=== PATIENT | male | born 1950 | race Native Hawaiian/Other Pacific Islander ===

== ENCOUNTER 2017-06-08 12:32 | Inpatient (IN) | payer MEDICARE, OTHER ==
[2017-06-08] MEDS ORDERED: Sodium Chloride 0.9% 1,000 ML IV ONE (13:35)
--- NOTE | 2017-06-08 13:42 | C.PDOC ---
History Of Present Illness 66 year old male wit PMHx of HTN, HLD, DM presents to the ED c/o feeling confused, generalized weakness along with vomit and diarrhea. Patient is also c/ o urinary frequency associated with burning sensation and nocturia. Patient denies chills, nausea, abdominal pain, back pain. Time Seen by Provider: 06/08/17 13:09 Chief Complaint (Nursing): Cough, Cold, Congestion History Per: Patient History/Exam Limitations: no limitations Onset/Duration Of Symptoms: Days Current Symptoms Are (Timing): Still Present Recent travel outside of the [place]: No Additional History Per: Patient Past Medical History Reviewed: Historical Data, Nursing Documentation, Vital Signs Vital Signs: Last Vital Signs Temp 97.8 F 06/08/17 12:40 Pulse 78 06/08/17 12:40 Resp 16 06/08/17 12:40 BP 116/64 06/08/17 12:40 Pulse Ox 95 06/08/17 14:33 - Medical History PMH: Diabetes, HTN, Hypercholesterolemia Surgical History: No Surg Hx Family History: States: Unknown Family Hx - Social History Hx Alcohol Use: No Hx Substance Use: No - Immunization History Hx Tetanus Toxoid Vaccination: No Hx Influenza Vaccination: Yes Hx Pneumococcal Vaccination: No Review Of Systems Constitutional: Positive for: Weakness. Negative for: Fever, Chills Cardiovascular: Negative for: Chest Pain, Palpitations Respiratory: Negative for: Cough, Shortness of Breath Gastrointestinal: Negative for: Nausea, Vomiting, Abdominal Pain Genitourinary: Positive for: Dysuria, Frequency. Negative for: Hematuria Skin: Negative for: Rash Neurological: Negative for: Weakness, Numbness, Headache, Dizziness Physical Exam - Physical Exam Appears: Non-toxic, No Acute Distress Skin: Normal Color, Warm, Dry Head: Atraumatic, Normacephalic Eye(s): bilateral: Normal Inspection Nose: No Discharge, No Deformity Oral Mucosa: Moist Neck: Normal ROM, Supple Chest: Symmetrical Cardiovascular: Rhythm Regular, No Murmur Respiratory: Normal Breath Sounds, No Rales, No Rhonchi, No Wheezing Gastrointestinal/Abdominal: Soft, No Tenderness, No Guarding, No Rebound Back: No CVA Tenderness Extremity: Normal ROM, No Pedal Edema, No Calf Tenderness, No Deformity, No Swelling Neurological/Psych: Oriented x3, Normal Speech, Normal Cognition Gait: Steady ED Course And Treatment - Laboratory Results Result Diagrams: 06/08/17 13:52 06/08/17 13:52 ECG: Interpreted By Me, Viewed By Me ECG Rhythm: Sinus Rhythm, Nonspecific Changes (T wave changes) Interpretation Of ECG: Sinus rhythm at 75 BPM with normal interval intervals, axis, no specific T wave changes. Rate From EC O2 Sat by Pulse Oximetry: 95 (On RA) Pulse Ox Interpretation: Normal - Radiology CXR: Viewed By Me, Read By Radiologist CXR Interpretation: Yes: Other (5 mm right lower lobe nodular density. Outpatient CT of the chest may be considered for further evaluation if indicated.). No: No Acute Disease, Infiltrates Medical Decision Making Medical Decision Making: Impression : generalized weakness Plan: * EKG * Labs * CXR * IV fluids * UA Patient will be admitted to medical surgical floor, patient will go to Dr. Dewayne Nguyen's service for renal failure. Disposition Discussed With : Zay Nguyen Doctor Will See Patient In The: Hospital Counseled Patient/Family Regarding: Studies Performed, Diagnosis - Disposition Disposition: HOSPITALIZED Disposition Time: 14:33 Condition: FAIR Forms: [employer] [facility] [employer] (Kyrgyz) - Clinical Impression Clinical Impression: Renal failure, acute - Scribe Statement The provider has reviewed the documentation as recorded by the Scribe Abram Multani All medical record entries made by the Scribe were at my direction and personally dictated by me. I have reviewed the chart and agree that the record accurately reflects my personal performance of the history, physical exam, medical decision making, and the department course for this patient. I have also personally directed, reviewed, and agree with the discharge instructions and disposition.
[2017-06-08] MEDS ORDERED: Sodium Chloride 0.9% 1,000 ML ONE (13:44)
[2017-06-08 13:56] LABS: BASO % 0.5 % (0.0-2.0); HEMOGLOBIN 19.1 g/dL (12.0-18.0); LYMPH # 0.8 K/uL (1.0-4.3); LYMPH % 8.3 % (20.0-40.0); MEAN CELL VOLUME 89.3 fL (80.0-94.0); MEAN CORPUSCULAR HEMOGLOBIN 30.4 pg (27.0-31.0); MEAN CORPUSCULAR HGB CONC 34.1 g/dL (33.0-37.0); MEAN PLATELET VOLUME 8.4 fL (7.2-11.7); MONO # 1.7 K/uL (0.0-0.8); MONO % 18.4 % (0.0-10.0); NEUT # 6.8 K/uL (1.8-7.0); NEUT % 72.8 % (50.0-75.0); NRBC % 0.3 % (0.0-2.0); PLATELET COUNT 344 K/uL (130-400); RBC 6.26 Mil/uL (4.40-5.90); RED CELL DISTRIBUTION WIDTH 13.1 % (11.5-14.5); WHITE BLOOD COUNT 9.3 K/uL (4.8-10.8)
--- NOTE | 2017-06-08 14:02 | RAD ---
HISTORY: SOB COMPARISON: None available. TECHNIQUE: Chest PA and lateral FINDINGS: LUNGS: No focal consolidation. 5 mm nodular density, right lung base. Please note that chest x-ray has limited sensitivity for the detection of pulmonary masses. PLEURA: No significant pleural effusion identified. No definite pneumothorax . CARDIOVASCULAR: The cardiomediastinal silhouette appears within normal limits of size. Faint atherosclerotic calcification OSSEOUS STRUCTURES: Degenerative changes. VISUALIZED UPPER ABDOMEN: Unremarkable. OTHER FINDINGS: None. IMPRESSION: No acute findings identified. 5 mm right lower lobe nodular density. Outpatient CT of the chest may be considered for further evaluation if indicated.
[2017-06-08 14:10] LABS: ALB/GLOB RATIO 1.2 (1.0-2.1); ALBUMIN 4.6 g/dL (3.5-5.0); CALCIUM 8.4 mg/dl (8.6-10.4)
[2017-06-08 14:19] LABS: TROPONIN I 0.077 ng/mL (0.00-0.120)
[2017-06-08 14:25] LABS: BANDS 2 % (0-2); LYMPHOCYTE 8 % (20-40); MONOCYTE 19 % (0-10); NEUTROPHIL 70 % (50-75); PLATELET ESTIMATE NORMAL (NORMAL); REACTIVE LYMPHOCYTES 1 % (0-0); TOTAL CELLS COUNTED 100
[2017-06-08 14:26] LABS: ANISOCYTOSIS SLIGHT; LARGE PLATELETS PRESENT
--- NOTE | 2017-06-08 16:42 | CP.PCM.HP ---
Past Patient History - Past Social History Smoking Status: Light Smoker < 10 Cigarettes Daily - CARDIAC Hx Hypercholesterolemia: Yes Hx Hypertension: Yes - ENDOCRINE/METABOLIC Hx Diabetes Mellitus Type 2: Yes - PSYCHIATRIC Hx Substance Use: No Meds Allergies/Adverse Reactions: Allergies Allergy/AdvReac Type Severity Reaction Status Date / Time No Known Allergies Allergy Verified 06/08/17 12:49 Physical Exam - Constitutional Appears: Well - Head Exam Head Exam: ATRAUMATIC, NORMAL INSPECTION, NORMOCEPHALIC - Eye Exam Eye Exam: EOMI, Normal appearance, PERRL Pupil Exam: NORMAL ACCOMODATION, PERRL - ENT Exam ENT Exam: Mucous Membranes Moist, Normal Exam - Neck Exam Neck exam: Positive for: Normal Inspection - Respiratory Exam Respiratory Exam: Decreased Breath Sounds - Cardiovascular Exam Cardiovascular Exam: REGULAR RHYTHM, +S1, +S2 - GI/Abdominal Exam GI & Abdominal Exam: Diminished Bowel Sounds, Soft - Rectal Exam Rectal Exam: Deferred Results - Vital Signs Recent Vital Signs: Last Vital Signs Temp 97.4 F L 06/08/17 16:27 Pulse 70 06/08/17 16:27 Resp 20 06/08/17 16:27 BP 125/71 06/08/17 16:27 Pulse Ox 97 06/08/17 16:27 - Labs Result Diagrams: 06/08/17 13:52 06/08/17 13:52 Labs: Laboratory Results - last 24 hr 06/08/17 06/08/17 13:52 13:52 WBC 9.3 RBC 6.26 H Hgb 19.1 H Hct 55.9 H MCV 89.3 MCH 30.4 MCHC 34.1 RDW 13.1 Plt Count 344 MPV 8.4 Neut % (Auto) 72.8 Lymph % (Auto) 8.3 L Beaver % (Auto) 18.4 H Eos % (Auto) 0.0 Baso % (Auto) 0.5 Neut # 6.8 Lymph # 0.8 L Beaver # 1.7 H Eos # 0.0 Baso # 0.0 Neutrophils % (Manual) 70 Band Neutrophils % 2 Lymphocytes % (Manual) 8 L Reactive Lymphs % 1 H Monocytes % (Manual) 19 H Platelet Estimate Normal Large Platelets Present Anisocytosis (manual) Slight Sodium 127 L Potassium 4.4 Chloride 87 L Carbon Dioxide 18 L Anion Gap 27 H BUN 69 H Creatinine 6.6 H Est GFR ( Amer) 10 Est GFR (Non-Af Amer) 8 Random Glucose 332 H Calcium 8.4 L Total Bilirubin 0.7 AST 26 ALT 37 Alkaline Phosphatase 74 Troponin I 0.0770 NT-Pro-B Natriuret Pep 889 Total Protein 8.3 Albumin 4.6 Globulin 3.7 Albumin/Globulin Ratio 1.2 Lipase 60
--- NOTE | 2017-06-08 22:28 | US ---
EXAM: US Retroperitoneal Limited, Renal EXAM DATE/TIME: 06/08/2017 7:08 PM CLINICAL HISTORY: 66 years old, male; Signs and symptoms; Other: Marko TECHNIQUE: Real-time ultrasound of the retroperitoneum (limited) with image documentation. COMPARISON: There are no prior studies for comparison. FINDINGS: Right kidney: Right kidney measures approximately 10.5 x 4.6 x 5.5 cm. There is increased cortical echogenicity. Corticomedullary differentiation is visualized. There is pelvic lipomatosis. There is a 1.6 x 1.5 x 1.3 cm right upper pole cyst. There is no pelvocaliectasis. Left kidney: Left kidney measures approximately 10.9 x 5.4 x 5 cm. There is increased cortical echogenicity. Corticomedullary differentiation is visualized. There is a 1 x 0.8 x 1.2 cm left upper pole cyst. There is a 5 x 7 x 6 mm mid pole cyst. There is a 6 x 6 x 6 mm lower pole cyst. There is no pelvocaliectasis. Aorta: There are atherosclerotic calcifications in the distal aorta. Bladder: Bladder is partially distended. IMPRESSION: Normal size kidneys, no hydronephrosis; medical renal disease
[2017-06-09 00:29] VITALS: RESP 20
[2017-06-09 07:27] LABS: HEMOGLOBIN 18.7 g/dL (12.0-18.0); MEAN CELL VOLUME 88.6 fL (80.0-94.0); MEAN CORPUSCULAR HEMOGLOBIN 31.4 pg (27.0-31.0); MEAN CORPUSCULAR HGB CONC 35.4 g/dL (33.0-37.0); MEAN PLATELET VOLUME 8.8 fL (7.2-11.7); RBC 5.97 Mil/uL (4.40-5.90); RED CELL DISTRIBUTION WIDTH 13.2 % (11.5-14.5); WHITE BLOOD COUNT 7.4 K/uL (4.8-10.8)
[2017-06-09 07:41] LABS: ALB/GLOB RATIO 1.4 (1.0-2.1); ALT/SGPT 38 U/L (21-72); AST/SGOT 27 U/L (17-59); BLOOD UREA NITROGEN 74 mg/dL (9-20); CALCIUM 8.6 mg/dl (8.6-10.4); GFR AFRICAN-AMERICAN 21; GFR NON-AFRICAN AMERICAN 18
[2017-06-09 08:01] LABS: COMPLEMENT C4 35.4 mg/dL (14.0-44.0)
[2017-06-09 08:28] LABS: HEPATITIS B SURFACE AG Negative (NEGATIVE)
[2017-06-09 08:44] LABS: HEPATITIS C ANTIBODY NEGATIVE (NEGATIVE)
[2017-06-09 09:41] LABS: SQUAMOUS EPITHIAL 1 /hpf (0-5); URINE BACTERIA RARE (<OCC); URINE BILIRUBIN NEGATIVE (NEGATIVE); URINE BLOOD 1+ (NEGATIVE); URINE CLARITY Hazy (Clear); URINE COLOR Yellow (YELLOW); URINE GLUCOSE (UA) 2+ mg/dL (Normal); URINE LEUKOCYTE ESTERASE NEG Leu/uL (Negative); URINE NITRATE NEGATIVE (NEGATIVE); URINE PROTEIN 2+ mg/dL (NEGATIVE); URINE UROBILINOGEN NORMAL mg/dL (0.2-1.0)
[2017-06-09] MEDS ORDERED: cefTRIAXone IV 1 gm in Dextros 1 GM in Dextrose 5% In Water 50 ML IVPB SCH (10:00)
[2017-06-09] MEDS: Pantoprazole 40 mg EC Tab PO SCH (10:34)
[2017-06-09] MEDS ORDERED: Potassium Chloride 20 mEq ER Tab PO ONE (11:00)
[2017-06-09] MEDS ORDERED: DiphenhydrAMINE 50 mg/ml Inj IM STA (11:32)
--- NOTE | 2017-06-09 16:21 | CARD ---
APPROVED REPORT EKG Measurement Heart [id number] <Conclusion> Normal sinus rhythm Nonspecific T wave abnormality Abnormal ECG
--- NOTE | 2017-06-09 19:21 | CP.PCM.PN ---
Subjective - Date & Time of Evaluation Date of Evaluation: 06/09/17 Time of Evaluation: 10:20 - Subjective Subjective: clinically same Objective - Vital Signs/Intake and Output Vital Signs (last 24 hours): Temp Pulse Resp BP Pulse Ox 98.4 F 82 20 120/76 96 06/09/17 16:24 06/09/17 16:24 06/09/17 16:24 06/09/17 16:24 06/09/17 16:24 - Medications Medications: Current Medications Amlodipine Besylate (Norvasc) 5 mg PO DAILY [facility] Last Admin: 06/09/17 10:34 Dose: 5 mg Gemfibrozil (Lopid) 600 mg PO BID [facility] Last Admin: 06/09/17 18:05 Dose: 600 mg Glimepiride (Amaryl) 1 mg PO ACB [facility] Last Admin: 06/09/17 06:47 Dose: 1 mg Heparin Sodium (Porcine) (Heparin) 5,000 units SC Q8 [facility] Last Admin: 06/09/17 14:10 Dose: Not Given Ceftriaxone Sodium 1 gm/ (Sodium Chloride) 100 mls @ 200 mls/hr IVPB Q24H [facility] Last Admin: 06/09/17 10:36 Dose: 200 mls/hr Losartan Potassium (Cozaar) 25 mg PO DAILY [facility] Last Admin: 06/09/17 10:34 Dose: 25 mg Pantoprazole Sodium (Protonix Ec Tab) 40 mg PO DAILY [facility] Last Admin: 06/09/17 10:34 Dose: 40 mg Pneumococcal Polyvalent Vaccine (Pneumovax 23 Vaccine) 0.5 ml IM .ONCE ONE Stop: 06/11/17 10:01 Tamsulosin HCl (Flomax) 0.4 mg PO DAILY [facility] Last Admin: 06/09/17 10:34 Dose: 0.4 mg - Labs Labs: 06/09/17 06:58 06/09/17 06:58
[2017-06-10] MEDS: Pantoprazole 40 mg EC Tab PO SCH (09:04)
[2017-06-10 11:33] LABS: HEMOGLOBIN 18.9 g/dL (12.0-18.0); MEAN CELL VOLUME 86.8 fL (80.0-94.0); MEAN CORPUSCULAR HGB CONC 35.7 g/dL (33.0-37.0); MEAN PLATELET VOLUME 8.4 fL (7.2-11.7); RBC 6.11 Mil/uL (4.40-5.90); RED CELL DISTRIBUTION WIDTH 12.6 % (11.5-14.5); WHITE BLOOD COUNT 5.4 K/uL (4.8-10.8)
--- NOTE | 2017-06-10 12:04 | CP.PCM.PN ---
Subjective - Date & Time of Evaluation Date of Evaluation: 06/10/17 Time of Evaluation: 11:00 - Subjective Subjective: clinically same Objective - Vital Signs/Intake and Output Vital Signs (last 24 hours): Temp Pulse Resp BP Pulse Ox 97.4 F L 71 20 128/82 97 06/10/17 07:15 06/10/17 07:15 06/10/17 07:15 06/10/17 07:15 06/10/17 07:15 Intake and Output: 06/10/17 06/10/17 06:59 18:59 Intake Total 500 Output Total 300 Balance 200 - Medications Medications: Current Medications Amlodipine Besylate (Norvasc) 5 mg PO DAILY [facility] Last Admin: 06/10/17 09:04 Dose: 5 mg Gemfibrozil (Lopid) 600 mg PO BID [facility] Last Admin: 06/10/17 09:05 Dose: 600 mg Glimepiride (Amaryl) 1 mg PO ACB [facility] Last Admin: 06/10/17 08:29 Dose: 1 mg Heparin Sodium (Porcine) (Heparin) 5,000 units SC Q8 [facility] Last Admin: 06/10/17 06:03 Dose: 5,000 units Ceftriaxone Sodium 1 gm/ (Sodium Chloride) 100 mls @ 200 mls/hr IVPB Q24H [facility] Last Admin: 06/10/17 10:43 Dose: 200 mls/hr Losartan Potassium (Cozaar) 25 mg PO DAILY [facility] Last Admin: 06/10/17 09:05 Dose: 25 mg Pantoprazole Sodium (Protonix Ec Tab) 40 mg PO DAILY [facility] Last Admin: 06/10/17 09:04 Dose: 40 mg Pneumococcal Polyvalent Vaccine (Pneumovax 23 Vaccine) 0.5 ml IM .ONCE ONE Stop: 06/11/17 10:01 Tamsulosin HCl (Flomax) 0.4 mg PO DAILY [facility] Last Admin: 06/10/17 09:04 Dose: 0.4 mg - Labs Labs: 06/10/17 11:19 06/09/17 06:58 - Constitutional Appears: Well - Head Exam Head Exam: ATRAUMATIC, NORMAL INSPECTION, NORMOCEPHALIC - Eye Exam Eye Exam: EOMI, Normal appearance, PERRL Pupil Exam: NORMAL ACCOMODATION, PERRL - ENT Exam ENT Exam: Mucous Membranes Moist, Normal Exam - Neck Exam Neck Exam: Full ROM, Normal Inspection. absent: Lymphadenopathy - Respiratory Exam Respiratory Exam: Decreased Breath Sounds - Cardiovascular Exam Cardiovascular Exam: REGULAR RHYTHM, +S1, +S2 - GI/Abdominal Exam GI & Abdominal Exam: Soft, Diminished Bowel Sounds - Rectal Exam Rectal Exam: Deferred
[2017-06-10 12:05] LABS: CALCIUM 8.4 mg/dl (8.6-10.4)
[2017-06-10] MEDS ORDERED: Potassium Chloride 20 mEq ER Tab PO ONE (15:21)
[2017-06-10] MEDS: (Novolog) Insulin Aspart, Recombinant 100 u/ml 10 ml vial SC SCH ×2 (18:34→21:20)
--- NOTE | 2017-06-10 19:26 | CP.PCM.CON ---
History of Present Illness - History of Present Illness History of Present Illness: Asked by Dr. Nguyen for a GI consultation on this patient. 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 Prior to this he was in usual state of health. He describes having progressively worse loose watery diarrhea (up to 4 times daily) without presence of blood, found to be in acute renal failure. He also endorses two episodes of non-bloody emesis prior to arrival to hospital. He denies abdominal pain, fever/chills, weight loss, rectal bleeding, recent travel , sick contacts, or antibiotic use. No further vomiting while in hospital, but his diarrhea continues, he had 3 episodes today. He is tolerating PO diet without difficulty, no prior endoscopic evaluation. Social history: smokes 3 cigarettes day, no ETOH use Family history: reviewed, patient denies history of GI malignancy Review of Systems - Review of Systems Review of Systems: - All other comprehensive 12 point review of systems performed, negative - Constitutional Constitutional: Fatigue, Lethargy - Cardiovascular Cardiovascular: absent: Acrocyanosis, Chest Pain, Chest Pain at Rest, Chest Pain with Activity, Claudication, Diaphoresis, Dyspnea, Dyspnea on Exertion, Edema, Irregular Heart Rhythm, Pain Radiating to Arm/Neck/Jaw, Leg Edema, Leg Ulcers, Lightheadedness, Orthopnea, Palpitations, Paroxysmal Nocturnal Dyspnea, Pedal Edema, Radiating Pain, Rapid Heart Rate, Slow Heart Rate, Syncope, Other - Respiratory Respiratory: absent: Cough, Dyspnea, Hemoptysis, Dyspnea on Exertion, Wheezing, Snoring, Stridor, Pain on Inspiration, Chest Congestion, Excessive Mucous Production, Change in Mucous Color, Pain with Coughing, Other - Gastrointestinal Gastrointestinal: Loose Stools - Musculoskeletal Musculoskeletal: absent: Abnormal Gait, Arthralgias, Atrophy, Back Pain, Deformity, Joint Swelling, Limited Range of Motion, Loss of Height, Muscle Cramps, Muscle Weakness, Myalgias, Neck Pain, Numbness, Radiating Pain into Limb , Stiffness, Tingling, Other - Neurological Neurological: absent: Abnormal Gait, Abnormal Hearing, Abnormal Movements, Abnormal Speech, Behavioral Changes, Burning Sensations, Confusion, Convulsions , Disequilibrium, Dizziness, Numbness, Focal Weakness, Frequent Falls, Headaches , Lack of Coordination, Loss of Vision, Memory Loss, Paresthesias, Radicular Pain, Restless Legs, Sensory Deficit, Syncope, Tingling, Tremor, Vertigo, Weakness, Other Visual Disturbances, Other Past Patient History - Past Medical History & Family History Past Medical History?: Yes - Past Social History Smoking Status: Current Some Days Smoker - CARDIAC Hx Cardiac Disorders: Yes Hx Hypercholesterolemia: Yes Hx Hypertension: Yes - PULMONARY Hx Respiratory Disorders: No - NEUROLOGICAL Hx Neurological Disorder: No - HEENT Hx HEENT Problems: No - RENAL Hx Chronic Kidney Disease: No - ENDOCRINE/METABOLIC Hx Endocrine Disorders: Yes Hx Diabetes Mellitus Type 2: Yes - HEMATOLOGICAL/ONCOLOGICAL Hx Blood Disorders: No - INTEGUMENTARY Hx Dermatological Problems: No - MUSCULOSKELETAL/RHEUMATOLOGICAL Hx Musculoskeletal Disorders: No Hx Falls: No - GASTROINTESTINAL Hx Gastrointestinal Disorders: No - GENITOURINARY/GYNECOLOGICAL Hx Genitourinary Disorders: No - PSYCHIATRIC Hx Psychophysiologic Disorder: No Hx Substance Use: No - SURGICAL HISTORY Hx Surgeries: Yes Other/Comment: polyps removal - ANESTHESIA Hx Anesthesia: Yes Hx Anesthesia Reactions: No Hx Malignant Hyperthermia: No Has any member of the family had a problem w/ anesthesia?: No Meds Allergies/Adverse Reactions: Allergies Allergy/AdvReac Type Severity Reaction Status Date / Time No Known Allergies Allergy Verified 06/08/17 12:49 - Medications Medications: Current Medications Amlodipine Besylate (Norvasc) 5 mg PO DAILY [facility] Last Admin: 06/10/17 09:04 Dose: 5 mg Gemfibrozil (Lopid) 600 mg PO BID [facility] Last Admin: 06/10/17 18:19 Dose: 600 mg Glimepiride (Amaryl) 1 mg PO ACB [facility] Last Admin: 06/10/17 08:29 Dose: 1 mg Heparin Sodium (Porcine) (Heparin) 5,000 units SC Q8 [facility] Last Admin: 06/10/17 13:43 Dose: 5,000 units Ceftriaxone Sodium 1 gm/ (Sodium Chloride) 100 mls @ 200 mls/hr IVPB Q24H [facility] Last Admin: 06/10/17 10:43 Dose: 200 mls/hr Insulin Aspart (Novolog) 0 unit SC ACHS [facility] PRN Reason: Protocol Last Admin: 06/10/17 18:34 Dose: Not Given Losartan Potassium (Cozaar) 25 mg PO DAILY [facility] Last Admin: 06/10/17 09:05 Dose: 25 mg Pantoprazole Sodium (Protonix Ec Tab) 40 mg PO DAILY [facility] Last Admin: 06/10/17 09:04 Dose: 40 mg Pneumococcal Polyvalent Vaccine (Pneumovax 23 Vaccine) 0.5 ml IM .ONCE ONE Stop: 06/11/17 10:01 Tamsulosin HCl (Flomax) 0.4 mg PO DAILY [facility] Last Admin: 06/10/17 09:04 Dose: 0.4 mg Physical Exam - Constitutional Appears: Non-toxic, No Acute Distress - Head Exam Head Exam: NORMAL INSPECTION - Eye Exam Eye Exam: EOMI, Normal appearance - ENT Exam ENT Exam: Mucous Membranes Moist - Respiratory Exam Respiratory Exam: Clear to Auscultation Bilateral - Cardiovascular Exam Cardiovascular Exam: REGULAR RHYTHM, +S1, +S2 - GI/Abdominal Exam GI & Abdominal Exam: Normal Bowel Sounds, Soft Additional comments: non tender to palpation in four quadrants no palpable hepato/splenomegaly - Extremities Exam Extremities exam: Positive for: normal inspection - Neurological Exam Neurological exam: Alert, CN II-XII Intact, Oriented x3, Reflexes Normal - Psychiatric Exam Psychiatric exam: Normal Affect, Normal Mood - Skin Skin Exam: Dry, Intact, Normal Color, Warm Results - Vital Signs Recent Vital Signs: Last Vital Signs Temp 98.5 F 06/10/17 16:44 Pulse 85 06/10/17 16:44 Resp 20 06/10/17 16:44 BP 116/80 06/10/17 16:44 Pulse Ox 95 06/10/17 16:44 - Labs Result Diagrams: 06/10/17 11:19 06/10/17 11:19 Labs: Laboratory Results - last 24 hr 06/09/17 06/09/17 06/09/17 06:58 06:58 16:52 WBC RBC Hgb Hct MCV MCH MCHC RDW Plt Count MPV Sodium Potassium Chloride Carbon Dioxide Anion Gap BUN Creatinine Est GFR ( Amer) Est GFR (Non-Af Amer) POC Glucose (mg/dL) Random Glucose Calcium Stool Leukocytes, Qual Serum Immunofixation Not detected RPR Nonreactive C. difficile Ag & Toxin Negative 06/09/17 06/10/17 06/10/17 21:05 06:22 11:19 WBC 5.4 RBC 6.11 H Hgb 18.9 H Hct 53.0 H MCV 86.8 MCH 31.0 MCHC 35.7 RDW 12.6 Plt Count 283 MPV 8.4 Sodium Potassium Chloride Carbon Dioxide Anion Gap BUN Creatinine Est GFR ( Amer) Est GFR (Non-Af Amer) POC Glucose (mg/dL) 163 H 102 Random Glucose Calcium Stool Leukocytes, Qual Serum Immunofixation RPR C. difficile Ag & Toxin 06/10/17 06/10/17 06/10/17 11:19 11:43 16:31 WBC RBC Hgb Hct MCV MCH MCHC RDW Plt Count MPV Sodium 127 L Potassium 3.4 L Chloride 99 Carbon Dioxide 15 L Anion Gap 16 BUN 60 H Creatinine 1.8 H Est GFR ( Amer) 46 Est GFR (Non-Af Amer) 38 POC Glucose (mg/dL) 143 H 238 H Random Glucose 165 H Calcium 8.4 L Stool Leukocytes, Qual Serum Immunofixation RPR C. difficile Ag & Toxin 06/10/17 16:52 WBC RBC Hgb Hct MCV MCH MCHC RDW Plt Count MPV Sodium Potassium Chloride Carbon Dioxide Anion Gap BUN Creatinine Est GFR ( Amer) Est GFR (Non-Af Amer) POC Glucose (mg/dL) Random Glucose Calcium Stool Leukocytes, Qual Negative Serum Immunofixation RPR C. difficile Ag & Toxin Assessment & Plan - Assessment and Plan (Free Text) Assessment: DM HTN Weakness, acute renal insufficiency Diarrhea Plan: - Low residue, lactose free diet as tolerated - Creatinine improving, continue to monitor and follow up renal recommendations - Await results of stool studies (culture, O/P) - Continue with antibiotic therapy as per medical team - Would discontinue use of PPI therapy and may use immodium PRN for symptomatic relief - If symptoms persist despite conservative medical therapy, suggest CT imaging for further evaluation - Patient would benefit from elective outpatient colonoscopy following resolution of acute medical condition
[2017-06-11 00:24] VITALS: TEMP 97.4
[2017-06-11] MEDS: (Novolog) Insulin Aspart, Recombinant 100 u/ml 10 ml vial SC SCH ×2 (07:09→12:00)
[2017-06-11] MEDS ORDERED: Sodium Chloride 0.9% 500 ML IV ONE ×2 (07:43→10:55)
--- NOTE | 2017-06-11 07:49 | CP.PCM.PN ---
<Jennifer Enamorado - Last Filed: 06/11/17 10:57> Subjective - Date & Time of Evaluation Date of Evaluation: 06/11/17 Time of Evaluation: 06:40 - Subjective Subjective: GI progress note for Dr Cash' s service Patient in no acute distress. States the nausea, and vomiting has resolved. Patient states he had 1 episode of loose bowel movement this morning. No fever or chills. Patient ate breakfast and was able to tolerate the diet. Objective - Vital Signs/Intake and Output Vital Signs (last 24 hours): Temp Pulse Resp BP Pulse Ox 97.4 F L 67 20 117/74 95 06/10/17 23:17 06/10/17 23:17 06/10/17 23:17 06/10/17 23:17 06/10/17 23:17 - Medications Medications: Current Medications Amlodipine Besylate (Norvasc) 5 mg PO DAILY [facility] Last Admin: 06/10/17 09:04 Dose: 5 mg Gemfibrozil (Lopid) 600 mg PO BID [facility] Last Admin: 06/10/17 18:19 Dose: 600 mg Glimepiride (Amaryl) 1 mg PO ACB [facility] Last Admin: 06/10/17 08:29 Dose: 1 mg Heparin Sodium (Porcine) (Heparin) 5,000 units SC Q8 [facility] Last Admin: 06/11/17 05:31 Dose: 5,000 units Ceftriaxone Sodium 1 gm/ (Sodium Chloride) 100 mls @ 200 mls/hr IVPB Q24H [facility] Last Admin: 06/10/17 10:43 Dose: 200 mls/hr Sodium Chloride (Sodium Chloride 0.9%) 500 mls @ 1,000 mls/hr IV .Q30M ONE Stop: 06/11/17 08:12 Insulin Aspart (Novolog) 0 unit SC ACHS [facility] PRN Reason: Protocol Last Admin: 06/11/17 07:09 Dose: Not Given Loperamide HCl (Imodium) 2 mg PO Q6H PRN PRN Reason: Diarrhea Losartan Potassium (Cozaar) 25 mg PO DAILY [facility] Last Admin: 06/10/17 09:05 Dose: 25 mg Pneumococcal Polyvalent Vaccine (Pneumovax 23 Vaccine) 0.5 ml IM .ONCE ONE Stop: 06/11/17 10:01 Tamsulosin HCl (Flomax) 0.4 mg PO DAILY [facility] Last Admin: 06/10/17 09:04 Dose: 0.4 mg - Labs Labs: 06/10/17 11:19 06/10/17 11:19 - Constitutional Appears: No Acute Distress - Head Exam Head Exam: ATRAUMATIC, NORMAL INSPECTION, NORMOCEPHALIC - Eye Exam Eye Exam: Normal appearance - ENT Exam ENT Exam: Mucous Membranes Moist - Neck Exam Neck Exam: Normal Inspection - Respiratory Exam Respiratory Exam: Clear to Ausculation Bilateral, NORMAL BREATHING PATTERN. absent: Rales, Rhonchi, Wheezes, Respiratory Distress, Stridor - Cardiovascular Exam Cardiovascular Exam: REGULAR RHYTHM, +S1, +S2 - GI/Abdominal Exam GI & Abdominal Exam: Soft, Normal Bowel Sounds. absent: Distended, Firm, Guarding, Rigid, Tenderness - Extremities Exam Extremities Exam: Normal Inspection. absent: Pedal Edema - Back Exam Back Exam: NORMAL INSPECTION - Neurological Exam Neurological Exam: Alert, Awake, Oriented x3 - Psychiatric Exam Psychiatric exam: Normal Affect, Normal Mood - Skin Skin Exam: Dry, Intact, Warm Assessment and Plan - Assessment and Plan (Free Text) Assessment: 66 y/o with pmh of htn, DM presenting with generalized weakness, nausea, and diarrhea found to have acute renal failure. Gi is consulted for diarrhea. Stool c diff negative. 1- Diarrhea : likely gastroenteritis due to lopid side effect versus viral versus hyperuremia 2- ERASMO likely pre-renal from dehydration versus, creat improved 3- DM 4- HTN Plan: - Stool c diff negative - Continue low residue diet as tolerated - Imdodium prn - Medical management as per primary - Please follow up as outpatient for colonoscopy once diarrhea resolves. - Gi signing off of patient. Patient seen, examined and case discussed with GI fellow and Dr Josue. <Ayush Cash MD - Last Filed: 06/12/17 08:17> Objective - Vital Signs/Intake and Output Vital Signs (last 24 hours): Temp Pulse Resp BP Pulse Ox 97.4 F L 65 20 114/69 97 06/11/17 08:14 06/11/17 09:55 06/11/17 08:14 06/11/17 09:55 06/11/17 08:14 - Labs Labs: 06/11/17 11:16 06/11/17 11:16 Attending/Attestation - Attestation I have personally seen and examined this patient.: Yes I have fully participated in the care of the patient.: Yes I have reviewed all pertinent clinical information, including history, physical exam and plan: Yes Notes (Text): 06/12/17 08:15 Patient seen with GI fellow and veterinary medical officer. This is a 66 y/o with pmh of htn, DM presenting with generalized weakness, nausea, and diarrhea found to have acute renal failure now resolving. Gi is consulted for diarrhea. Stool c diff negative. Continue low residue diet as tolerated. Supportive care. Likely self resolving gastroenteritis. Can follow up as outpatient for colonoscopy once diarrhea resolves. Gi signing off of patient. Discussed with Dr Nguyen. Thank you for letting us participate in the care of your patient
[2017-06-11 08:16] VITALS: O2SAT 97
[2017-06-11] MEDS ORDERED: Pneumococcal 23-Valent Vaccine IM ONE (10:00)
[2017-06-11] MEDS ORDERED: Influenza Vaccine 60 mcg/0.5 mL SYR (4YR UP) IM ONE (10:00)
[2017-06-11 11:49] LABS: ALB/GLOB RATIO 1.3 (1.0-2.1); ALBUMIN 3.4 g/dL (3.5-5.0); ALT/SGPT 31 U/L (21-72); AST/SGOT 31 U/L (17-59); BLOOD UREA NITROGEN 41 mg/dL (9-20); CALCIUM 7.5 mg/dl (8.6-10.4); GFR AFRICAN-AMERICAN > 60; GFR NON-AFRICAN AMERICAN 51; MAGNESIUM 1.7 mg/dL (1.6-2.3)
[2017-06-11 12:14] LABS: BASO # 0.1 K/uL (0.0-0.2); BASO % 1.7 % (0.0-2.0); EOS # 0.1 K/uL (0.0-0.7); EOS % 2.6 % (0.0-4.0); HEMOGLOBIN 17.4 g/dL (12.0-18.0); LYMPH # 0.9 K/uL (1.0-4.3); LYMPH % 30.2 % (20.0-40.0); MEAN CELL VOLUME 87.2 fL (80.0-94.0); MEAN CORPUSCULAR HEMOGLOBIN 31.1 pg (27.0-31.0); MEAN CORPUSCULAR HGB CONC 35.7 g/dL (33.0-37.0); MEAN PLATELET VOLUME 8.5 fL (7.2-11.7); MONO # 0.6 K/uL (0.0-0.8); MONO % 18.4 % (0.0-10.0); NEUT # 1.4 K/uL (1.8-7.0); NEUT % 47.1 % (50.0-75.0); NRBC % 0.6 % (0.0-2.0); RBC 5.57 Mil/uL (4.40-5.90)
[2017-06-11 12:47] VITALS: BP 114/69; PULSE 65
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
--- NOTE | 2017-06-11 14:23 | CP.PCM.PN ---
Subjective - Date & Time of Evaluation Date of Evaluation: 06/11/17 Time of Evaluation: 14:23 - Subjective Subjective: PATIENT WAS ADMITTED FOR ACUTE RENAL FAILURE ; ALSO HAVING MULTI LOOSE BM FOR THE PAST DAYS; DENIES CHEST PAIN; SOB OR HEART PALPITATION; NO SIGN OF DISTRESS NOTED Objective - Vital Signs/Intake and Output Vital Signs (last 24 hours): Temp Pulse Resp BP Pulse Ox 97.4 F L 65 20 114/69 97 06/11/17 08:14 06/11/17 09:55 06/11/17 08:14 06/11/17 09:55 06/11/17 08:14 - Medications Medications: Current Medications Amlodipine Besylate (Norvasc) 5 mg PO DAILY [facility] Last Admin: 06/11/17 10:03 Dose: Not Given Gemfibrozil (Lopid) 600 mg PO BID [facility] Last Admin: 06/10/17 18:19 Dose: 600 mg Glimepiride (Amaryl) 1 mg PO ACB [facility] Last Admin: 06/11/17 08:55 Dose: 1 mg Heparin Sodium (Porcine) (Heparin) 5,000 units SC Q8 [facility] Last Admin: 06/11/17 14:19 Dose: Not Given Ceftriaxone Sodium 1 gm/ (Sodium Chloride) 100 mls @ 200 mls/hr IVPB Q24H [facility] Last Admin: 06/11/17 09:54 Dose: 200 mls/hr Insulin Aspart (Novolog) 0 unit SC ACHS [facility] PRN Reason: Protocol Last Admin: 06/11/17 12:00 Dose: Not Given Loperamide HCl (Imodium) 2 mg PO Q6H PRN PRN Reason: Diarrhea Losartan Potassium (Cozaar) 25 mg PO DAILY [facility] Last Admin: 06/11/17 09:55 Dose: 25 mg Tamsulosin HCl (Flomax) 0.4 mg PO DAILY [facility] Last Admin: 06/11/17 09:54 Dose: 0.4 mg - Labs Labs: 06/11/17 11:16 06/11/17 11:16 Assessment and Plan - Assessment and Plan (Free Text) Assessment: PATIENT IS SEEN AND EXAMINED AT THE BEDSIDE LATEST LAB NA IS 127 AND PATIENT HAD [address] OWEN EVALUATE THE PATIENT AND CLEAR FOR DC DISCUSS WITH DR Mila VEGAS WHO AGREE AND CLEAR FOR DC FOLLOW UP WITH DR Mila VEGAS Wednesday AT HIS OFFICE --CALL TO CONFIRM APPOINTMEN CONTINUE ALL YOU HOME MEDICATION DIRECTED NEW PRESCRIPTION GIVEN : IMODIUM 2 MG BY MOUTH EVERY [address] VEGAS OR GO TO THE EMERGENCY ROOM IF SYMPTOMS RETURN OR WORSENING DISCUSS WITH PATIENT AND PATIENT'S WHO AGREE AND VERBALIZED UNDERSTANDING
--- NOTE | 2017-06-11 18:51 | PCM.PYCHPN ---
Psychiatric Progress Note - Psychiatric Progress Note Patient seen today, length of contact: 15 min Patient Chief Complaint: I am doing fine.' Problems Identified/Issues Discussed: Patient seen and evaluated, chart reviewed and discussed with the nurse. Patient reports improvement in his mood and reports improvement in the anxiety. He denies any auditory or visual hallucinations. He remained calm and cooperative. He has no recollections of what happened 2 days ago. He denies any paranoia and any AVH. Spoke with the . As per the she just came from [place] and she reports that he is AAO x3 and doing good. Supportive therapy and psychoeducation were given. Medication Change: No Medical Record Reviewed: Yes Mental Status Examination - Cognitive Function Orientation: Person, Place, Situation, Time Memory: Intact Attention: WNL Concentration: WNL Association: WNL Fund of Knowledge: WNL - Mood Mood: Neutral - Affect Affect: Constricted - Formal Thought Process Formal Thought Process: No Impairment - Suicidal Ideation Suicidal Ideation: No - Homicidal Ideation Homicidal Ideation: No Goal/Treatment Plan - Goal/Treatment Plan Need for Continued Stay: Other Progress Toward Problem(s) and Goals/Treatment Plan: Pt psychiatrically stable and clear for discharge. - Smoking Cessation Smoking Cessation Initiated: No
== END 2017-06-11 15:23 | disposition home or self-care (01) | DRG 684 ==
LOC: C.ER 12:32 → C.9E 14:31 → C.5S 18:19
PROVIDERS: ADMIT Internal Medicine Nephrology; ATTEND Internal Medicine Nephrology
PROC: 3E0234Z Introduction of Serum, Toxoid and Vaccine into Muscle, Percutaneous Approach (ICD-10-PCS; principal; 2017-06-11)
DX: N17.9 Acute kidney failure, unspecified (principal); E11.9 Type 2 diabetes mellitus without complications; E78.5 Hyperlipidemia, unspecified; F17.210 Nicotine dependence, cigarettes, uncomplicated; F41.9 Anxiety disorder, unspecified; I10 Essential (primary) hypertension; Z79.4 Long term (current) use of insulin; Z23 Encounter for immunization